=== PATIENT | male | born 1955 | race Hispanic/Latino ===

== ENCOUNTER 2021-05-26 22:50 | Emergency (ER) | payer MEDICARE, BC ==
[~2021-05-26] VITALS: Ht 167.6 cm; Wt 88.5 kg
[2021-05-26] MEDS ORDERED: SODIUM CHLORIDE 0.9% 1000ML 1,000 ML IV STA (23:09)
[2021-05-26] MEDS ORDERED: KETOROLAC TROMETHAMINE 30 MG/ML VIAL IV ONE (23:15)
[2021-05-26] MEDS ORDERED: ONDANSETRON HCL INJ 2MG/ML 2ML 2 MG/ML VIAL IV ONE (23:15)
[2021-05-26] MEDS ORDERED: FAMOTIDINE 20 MG/2 ML VIAL IV ONE (23:15)
[2021-05-26] MEDS ORDERED: SODIUM CHLORIDE 0.9% 1000ML 1,000 ML ONE (23:23)
[2021-05-26] MEDS ORDERED: IBUPROFEN IB200 MG PO (23:45)
[2021-05-26] MEDS ORDERED: ONDANSETRON ODT4 MG PO (23:45)
[2021-05-26] MEDS ORDERED: ACETAMINOPHEN-1 EAC4 PO (23:45)
[2021-05-26] MEDS ORDERED: FLOMAX0.4 MG PO (23:45)
== END 2021-05-27 00:20 | disposition home or self-care (01) ==
LOC: FSED 23:10
DX: R10.31 Right lower quadrant pain (principal); N13.2 Hydronephrosis with renal and ureteral calculous obstruction; K57.90 Diverticulosis of intestine, part unspecified, without perforation or abscess without bleeding; I10 Essential (primary) hypertension; I25.2 Old myocardial infarction
CPT/HCPCS: 74176; 80048; 80076; 81003; 85025; 99284; J1885; J2405; J7030

== ENCOUNTER 2024-05-23 08:32 | Emergency (ER) | payer BC, MEDICARE ==
[~2024-05-23] VITALS: Ht 167.6 cm; Wt 90.7 kg
[~2024-05-23 08:32] MED LIST: ACETAMINOPHEN-1 EAC4 PO; FLOMAX0.4 MG PO; IBUPROFEN IB200 MG PO; ONDANSETRON ODT4 MG PO
[2024-05-23 08:50] VITALS: TEMP 97.4
[2024-05-23 09:19] VITALS: PULSE 66; RESP 18
[2024-05-23 09:51] LABS: BASOPHILS % 0.4 % (0.0-1.0); EOSINOPHILS # (AUTO) 0.1 (0.0-0.4); EOSINOPHILS % 1.3 % (0.0-6.0); HEMOGLOBIN 17.7 g/dL (14.0-18.0); LYMPHOCYTES # (AUTO) 1.9 (1.0-3.2); LYMPHOCYTES % 25.1 % (18.0-39.1); MEAN CORPUSCULAR HEMOGLOBIN 31.1 pg (28-32); MEAN CORPUSCULAR HGB CONC 33.4 g/dL (31-35); MONOCYTES # (AUTO) 0.4 (0.2-0.8); NEUTROPHILS # (AUTO) 5.2 (2.1-6.9); NEUTROPHILS % 67.9 % (38.7-80.0); PLATELET COUNT 227 x10e3/uL (140-360); RED CELL DISTRIBUTION WIDTH 12.6 % (11.7-14.4); WHITE BLOOD COUNT 7.65 x10e3/uL (4.8-10.8)
[2024-05-23 10:20] LABS: ALBUMIN/GLOBULIN RATIO 1.5 (0.8-2.0); ANION GAP 13.9 mmol/L (8-16); BILIRUBIN,TOTAL 1.2 mg/dL (0.2-1.2); CALCIUM 9.3 mg/dL (8.4-10.2); CREATININE, SERUM 0.92 mg/dL (0.72-1.25); POTASSIUM 3.9 mmol/L (3.5-5.1); TOTAL PROTEIN 6.7 g/dL (6.5-8.1)
[2024-05-23 10:25] LABS: TROPONIN I 0.012 ng/mL (0-0.300)
[2024-05-23 10:43] VITALS: BP 128/84; PULSE 66; RESP 16; O2SAT 99
== END 2024-05-23 10:53 | disposition home or self-care (01) ==
LOC: ER 08:39
DX: R53.83 Other fatigue (principal); I10 Essential (primary) hypertension; E78.5 Hyperlipidemia, unspecified; I25.10 Atherosclerotic heart disease of native coronary artery without angina pectoris; R94.31 Abnormal electrocardiogram [ECG] [EKG]; I25.2 Old myocardial infarction; Z95.5 Presence of coronary angioplasty implant and graft
CPT/HCPCS: 36415; 71045; 80053; 83880; 84484; 85025; 93005; 99284